=== PATIENT | male | born 1945 | race African-American/Black ===

== ENCOUNTER 2024-02-15 14:55 | Outpatient (REF) | payer MEDICARE, SELFPAY ==
[2024-02-15 17:28] LABS: Alanine Aminotransferase 89 U/L (0-40); Albumin Level 3.9 g/dL (3.5-5.0); Alkaline Phosphatase 79 U/L (39-117); Anion Gap 9 (12-20); Aspartate Amino Transferase 58 U/L (5-37); Bilirubin Total 0.2 mg/dL (0.0-1.0); Blood Urea Nitrogen 27 mg/dL (9-16); Calcium 8.7 mg/dL (8.4-10.2); Carbon Dioxide 21 mmol/L (22-29); Chloride 115 mmol/L (96-108); Cholesterol 138 mg/dL (<200); Estimated Glomerular Filt Rate 54; Glucose Random 83 mg/dL (60-115); HDL Cholesterol 39 mg/dL (>40); LDL Cholesterol Calculated 78 mg/dL (<100); Potassium 3.7 mmol/L (3.3-5.1); Sodium 141 mmol/L (135-145); Total Protein 7.6 g/dL (6.5-8.0); Triglycerides 108 mg/dL (<150)
[2024-02-15 17:36] LABS: Microalbum/Creatinine Ratio Ur 4.5 ug/mg cr (<30)
== END 2024-02-15 14:56 | disposition home or self-care (01) ==
LOC: HO.HHCL 14:55
PROVIDERS: Visit Provider Registered Nurse
DX: E11.22 Type 2 diabetes mellitus with diabetic chronic kidney disease (principal); N18.31 Chronic kidney disease, stage 3a
CPT/HCPCS: 36415; 80053; 80061; 82043; 82570

== ENCOUNTER 2025-02-18 10:13 | Outpatient (REF) | payer MEDICARE, SELFPAY ==
[2025-02-18 11:31] LABS: MANUAL DIFF FLAG NO
[2025-02-18 11:47] LABS: Basophils Absolute Auto 0.1 X10*3/uL (0.0-0.2); Basophils Percent Auto 0.9 % (0-2); Eosinophils Absolute Auto 0.5 X10*3/uL (0.0-0.4); Eosinophils Percent Auto 7.5 % (0-4); Hematocrit 43.8 % (42.0-52.0); Hemoglobin 14.5 g/dl (14.0-18.0); Imm Gran Abs Auto 0.03 X10*3/uL (0.00-0.03); Imm Gran Pct Auto 0.4 % (0.0-0.4); Lymphocytes Absolute Auto 1.3 X10*3/uL (1.2-4.9); Lymphocytes Percent Auto 18.6 % (20-40); Mean Corpuscular HGB Conc 33.1 g/dl (31.0-36.0); Mean Corpuscular Hemoglobin 33.9 pg (27.0-33.0); Mean Corpuscular Volume 102.3 fL (80.0-98.0); Mean Platelet Volume 11.4 fL (9.4-12.4); Monocytes Absolute Auto 0.8 X10*3/uL (0.1-1.2); Monocytes Percent Auto 11.8 % (2-11); Neutrophils Absolute Auto 4.1 x10*3/uL (2.0-8.3); Neutrophils Percent Auto 60.8 % (45-73); Platelet Count 167 X10*3/uL (160-400); Red Blood Count 4.28 X10*6/uL (4.60-5.80); Red Cell Distribution Width 13.9 % (11.0-16.0); White Blood Count 6.8 X10*3/uL (4.8-10.8)
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
--- OUTSIDE RECORDS SUMMARY | 2025-02-18 11:53 | XMS_ITS | Encounter Summary ---
Author Organization [facility] Address [address] [place] [address] Phone Care Team Providers Care Patient Relations Specialist Name Role Phone [facility] Primary Care Provider [phone] Encounter Details Date Type Department Care Team (Late st Contact Info) Description 01/24/2022 Documentation Only [facility], [address] [place] [address] [facility] [address] [place], [place] [phone] Social History Tobacco Use Types Packs/Day Years Used Date Smoking Tobacco: Heavy Smoker Cigarettes Alcohol Use Standard Drinks/Week Comments Never 0 (1 standard drink = 0.6 oz pur e alcohol) Sex and Gender Information Value Date Recorded Sex Assigned at Not on file Legal Sex Male 12:12 PM EST Gender Identity Not on file Sexual Orientation Not on file documented as of this encounter Plan of Treatment Not on file documented as of this encounter Visit Diagnoses Not on filedocumented in this encounter Care Teams Patient Relations Specialist Relationship Specialty Start Date End Date [facility] [address] [place], [place] [phone] PCP - General 01/24/22 documented as of this encounter
--- OUTSIDE RECORDS SUMMARY | 2025-02-18 11:53 | XMS_ITS | Encounter Summary ---
Author Organization [facility] Address [address] [place] [address] Phone Care Team Providers Care Welder Production Line Combination Name Role Phone [facility] Primary Care Provider [phone] Encounter Details Date Type Department Care Team (Late st Contact Info) Description 12/08/2022 Documentation Only [facility] [place], [address] [place] [address] Jose An PA Social History Tobacco Use Types Packs/Day Years Used Date Smoking Tobacco: Every Day Cigarettes Alcohol Use Standard Drinks/Week Comments Never [...] on filedocumented in this encounter Care Teams [employer]der [employer] Combination Relationship Specialty Start Date End Date [facility] [address] [place] [address] PCP - General 01/24/22 documented as of this encounter
--- OUTSIDE RECORDS SUMMARY | 2025-02-18 11:53 | XMS_ITS | Encounter Summary ---
Author Organization [employer] Address [address] [facility] [address] [place] [address] Care Team Providers Care Power And Recovery Supervisor Name Role Phone [facility] Primary Care Provider [phone] Reason for Visit * Reason Comments Med Refill Encounter Details Date Type Department Care Team (Late st Contact Info) Description 05/30/2024 Refill [facility] [address] [place], [place] [phone] [facility] [address] [place], [place] [phone] Social History Tobacco Use Types Packs/Day Years Used Date Smoking Tobacco: Some Days Cigarettes Smokeless Tobacco: Never Alcohol Use Standard Drinks/Week Comments Not Currently 0 (1 standard drink = 0.6 oz pur e alcohol) Depression Answer Date Recorded Patient Health Questionnaire-9 Score 4 02/15/2024 Patient Health Questionnaire-9 Score 4 02/15/2024 Last PHQ-9: Questionnaire Data Not on file 0 02/15/2024 Housing Stability Answer Date Recorded What is [...] Answer Date Recorded Patient Health Questionnaire-2 Score 1 02/15/2024 Sex and Gender Information Value Date Recorded Sex Assigned at Male 08/28/2022 10:14 AM EDT Legal Sex Male 10:14 AM EDT Gender Identity Male 08/28/2022 10:14 AM EDT Sexual Orientation Straight 08/28/2022 10 :14 AM EDT documented as of this encounter Plan of Treatment Upcoming Encounters Date Type Department Care Team (Late st Contact Info) Description 04/22/2025 9:00 AM EDT Office Visit [facility] [address] [place] [address] Candy Love FNP [address] [place] [address] documented as of this encounter Visit Diagnoses Not on filedocumented in this encounter Additional Health Concerns Assessment Noted Time PHQ-9 Depression Total Score: 4 02/15/20 24 2:48 PM EDT documented as of this encounter Care Teams Power And Recovery Supervisor Relationship Specialty Start Date End Date Candy Love FNP [address] [place] [address] PCP - General Family Medicine 07/26/21 documented as of this encounter
--- OUTSIDE RECORDS SUMMARY | 2025-02-18 11:53 | XMS_ITS | Clinical Summary ---
Author Organization [employer] Address [address] [facility] [address] [place] [address] Care Team Providers Care Reconciler Name Role Phone [facility] Primary Care Provider [phone] Allergies No known active allergies Medications fluticasone (Flonase) 50 MCG/ACT nasal spray Administer 1 spray into affected nostril(s) every 12 (twelve) hours. 2 Active glucose-vitamin C 4-6 GM-MG oral gel take 2 tablets check blood sugar 15 min later, below 70, take 2 more tablets, if still under 70 call provider for more instructions 0 Active nicotine (Nicotrol) 10 MG inhaler inhale (1UNITS) by inhalation route up to 6 times per day as needed for tobacco cessation 2 Active omeprazole (PriLOSEC) [address] capsule Take 1 capsule by mouth before evening meal. 2 Active brimonidine (AlphaGAN P) 0.2 % ophthalmic solution 1 drop in the morning and at bedtime. Prescribed elsewhere Active dorzolamide (Trusopt) 2 % ophthalmic solution Administer 1 drop into both eyes in the morning and at bedtime. Prescribed elsewhere Active latanoprost (Xalatan) 0.005 % ophthalmic solution Administer 1 drop into both eyes in the morning and at bedtime. Prescribed elsewhere Active ketorolac (Acular) 0.5 % ophthalmic solution 1 drop in the morning, at noon, in the evening, and at bedtime. Prescribed elsewhere Active prednisoLONE acetate (Pred-Forte) 1 % ophthalmic suspension 1 drop in the morning, at noon, and at bedtime. Prescribed elsewhere Active Netarsudil Dimesylate (Rhopressa) 0.02 % solution Administer into affected eye(s). Prescribed elsewhere Active Diclofenac Sodium 1 % gelIndications:C hronic right shoulder pain Apply topically to affected area up to three times daily 150 g 2 2 Active Capsaicin 0.025 % lotionIndication s:Chronic right shoulder pain Apply to affected area up to three times daily 1 Bottle 1 2 Active clonazePAM (KlonoPIN) 0.5 MG tabletIndication s:Anxiety disorder, unspecified TAKE 1 TABLET BY MOUTH EVERY TWELVE HOURS 60 tablet 3 Active Blood Pressure kitIndications:E ssential hypertension Use as directed 1 kit 4 Active Alcohol Swabs (Alcohol Prep) 70 % pads USE DIRECTED THREE TIMES DAILY 100 each 11 4 Active Multiple Vitamins-Iron (Tab-A-Matthew/Iron /Beta Carotene) tablet TAKE 1 TABLET BY MOUTH EVERY MORNING 30 tablet 5 4 Active FREESTYLE LITE test stripIndications :Type 2 diabetes mellitus with stage 3a chronic kidney disease, without long-term current use of insulin ([facility]) TEST BLOOD SUGAR THREE TIMES DAILY 100 strip 11 4 Active TRUEplus Lancets 33G miscIndications: Type 2 diabetes mellitus with stage 3a chronic kidney disease, without long-term current use of insulin ([facility]) TEST BLOOD SUGAR THREE TIMES DAILY 100 each 11 4 Active verapamil SR (Calan SR) 120 MG ER tabletIndication s:Primary hypertension Take 1 tablet by mouth every morning with food 30 tablet 5 4 Active atorvastatin (Lipitor) 40 MG tablet TAKE 1 TABLET BY MOUTH AT BEDTIME 90 tablet 1 4 Active D3 Super Strength 50 MCG (1999 UT) capsuleIndicatio ns:Vitamin D deficiency TAKE 1 CAPSULE BY MOUTH EVERY MORNING 90 capsule 1 4 Active Multiple Vitamins-Mineral s (CertaVite/Antio xidants) tablet TAKE 1 TABLET BY MOUTH EVERY MORNING 30 tablet 5 4 Active QUEtiapine (SEROquel) 50 MG tablet TAKE 1 TABLET BY MOUTH AT BEDTIME 30 tablet 3 4 Active FLUoxetine (PROzac) 20 MG capsule TAKE 1 CAPSULE BY MOUTH EVERY MORNING 30 capsule 5 5 Active QUEtiapine (SEROquel) 50 MG tabletIndication s:Schizophrenia, unspecified type (CMS/HCC) Take 1 tablet (50 mg) by mouth at bedtime. In addition to 50mg tablet in medbox 30 tablet 5 025 Active Active Problems Problem Noted Date Diagnosed Date Frailty 02/18/2024 Chronic right shoulder pain 10/27/2022 Assessment & Plan (10/27/2022 8:23 AM EST): PE consistent with mild impingement ?? Rx topical diclofenac and topical capsaicin ?? Tylenol per label instructions as needed for pain ?? Encouraged gentle stretching ?? If sx worsen will consider x-ray and cortisone injection Drug-induced hyperkalemia 06/30/2022 Type 2 diabetes mellitus 03/30/2022 Overview (02/20/2023): Diet controlled BMP: 12/2021 WNL Microalbumin: 12/2021 WNL Foot Exam: 01/2023 Risk category 0 Eye Exam: [facility] care Lipid panel: 12/2022 WNL Statin: Yes ASA: No AMAYA/ARB: No Encouraged regular aerobic exercise for improved glycemic control Encouraged daily foot checks Encouraged lean protein snacks and to avoid foods high in sugar and simple carbohydrates Treatment Goals: A1c goal: <7% FBG goal: <130 2 hour post prandial goal: <180 Assessment & Plan (02/20/2023 3:27 PM EDT): Lab Results Component Value Date HGBA1C 5.8 (H) 01/11/2023 ?? Continue current regimen ?? DM foot exam completed today-risk factor 0 Assessment & Plan (10/27/2022 8:16 AM EST): Current A1c: Ordered today ?? Pending updated A1c will consider jardiance start if A1c>8 Maintenance: BMP: Ordered today Microalbumin: Ordered today Foot Exam: Complete at follow up Eye Exam: Completed 08/2022 Lipid panel: Ordered today ASCVD: Calculate pending updated labs Statin: Yes ASA: No (age) AMAYA/ARB: No (hx of ARB induced hyperkalemia) Encouraged regular aerobic exercise for improved glycemic control Encouraged daily foot checks Encouraged lean protein snacks and to avoid foods high in sugar and simple carbohydrates Treatment Goals: A1c goal: <8% FBG goal: <130 2 hour post prandial goal: <180 Stage 3b chronic kidney disease 12/08/2021 Overview (10/26/2022): - Has initial appointment with nephrology (Dr. [facility] [place]) - Stage III - Stable Memory impairment 11/27/2021 Assessment & Plan (10/26/2022 3:55 PM EST): - Sx began 2017. - Previously referred to [facility] memory clinic, 2019, missed initial appointment - Unable to be left alone d/t safety concerns and wandering Vitamin D deficiency 07/08/2015 Depressive disorder 04/23/2012 Essential hypertension 04/23/2012 Overview (02/20/2023): - Consistently within goal - Hx of hyperkalemia (now resolved) with olmesartan (d/c) - Tolerating verapamil (d/t hx of proteinuria) well 120mg ER daily Maintenance: BMP: 12/2022 WNL Lipid Panel: 12/2022 WNL - Aerobic exercise to reduce BP. Initial goal of 30 min walk 3-5x/week. Increase as tolerated. - low-sodium diet (goal: <2g/day) and heart healthy diet such as DASH to reduce BP and prevent ASCVD. - Home BP monitoring 1-2 x day with goal of <140/90. - Seek immediate medical attention for chest pain, palpitations, SOB, syncope, or sudden changes in mental status. - Do not change or discontinue current prescriptions without first consulting health care provider Assessment & Plan (02/20/2023 3:27 PM EDT): ?? Continue current regimen Assessment & Plan (10/27/2022 8:17 AM EST): ?? Well controlled with verapamil 120mg ER ?? Continue current regimen Maintenance: BMP: Ordered today Lipid Panel: Ordered today ASCVD Risk: Calculate pending updated labs EKG: Obtain baseline at f/u - Aerobic exercise to reduce BP. Initial goal of 30 min walk 3-5x/week. Increase as tolerated. - low-sodium diet (goal: <2g/day) and heart healthy diet such as DASH to reduce BP and prevent ASCVD. - Home BP monitoring 1-2 x day with goal of <140/90. - Seek immediate medical attention for chest pain, palpitations, SOB, syncope, or sudden changes in mental status. - Do not change or discontinue current prescriptions without first consulting health care provider Schizophrenia 04/23/2012 Overview (10/26/2022): - Frequently sees his . No other auditory or visual hallucinations. Tobacco dependence syndrome 04/23/2012 Overview (10/26/2022): - Pt has successfully stopped smoking with use of nicotrol inhalers! Hypercholesterolemia 10/29/2004 Resolved Problems Problem Noted Date Diagnosed Date Resolved Date Impaired fasting blood sugar 11/27/2021 10/26/2022 Encounters Date Type Department Care Team Description 02/18/2025 9:00 AM EDT Office Visit [facility] [address] [place] [address] [phone] [facility] Type 2 diabetes mellitus with stage 3a chronic kidney disease, without long-term current use of insulin ([facility]) (Primary Dx); Schizophrenia, unspecified type ([facility]); Goiter; Cognitive decline; Decreased hearing of both ears 02/18/2025 Travel from Last 3 Months Immunizations Name Administration Dates Next Due Influenza High-dose Quadriva lent Preservative Free 07/17/2022,02/03/2022,08/10/2020 Influenza injectable quadriv alent IIV4 with preservative 09/19/2017,10/18/2015 Influenza injectable quadriv alent preservative free 08/21/2019,11/30/2016 Influenza, High Dose Seasona l, Preservative Free 07/24/2018 Influenza, IIV3, injectable 07/09/2014 Influenza, Split (incl. dio fied surface antigen) 09/30/2013,09/16/2012 Moderna Covid-19 Vaccine 12+ 02/03/2022,03/03/20 21,02/03/2021 Pneumococcal Conjugate PCV 13 10/18/2015 Pneumococcal Polysaccharide PPSV23 09/16/2012 TD (adult), 2 Lf tetanus tox oid, preservative free, adsorbed 11/01/2018,03/19/2009,04/13/1998 Tdap 09/30/2013 Zoster, Recombinant 10/11/2020,08/10/2020 Zoster, live 10/18/2015 Social History Tobacco Use Types Packs/Day Years [...] Orientation Straight 08/28/2022 10 :14 AM EDT Last Filed Vital Signs Vital Sign Reading [...] Mass Index 22.6 02/18/2025 9:06 AM EDT Plan of Treatment Upcoming Encounters Date Type Department Care Team (Late st Contact Info) Description 04/22/2025 9:00 AM EDT Office Visit [facility] [address] [place], [place] [phone] [facility], [facility] [address] [place], [place] [phone] Health Maintenance Due Date Last Done Comments Alcohol/Substance Use Screening 1957 RSV Patients and Patients Aged 60 years or older (1 - 1-dose 75+ series) 2021 Creatinine Level 08/16/2024 02/15/2024, , 12/01/2021, Additional history exists Diabetes: Foot Exam 02/14/2025 02/15/2024, 02/15/2024, 02/02/2023, Additional history exists Lipid Panel 02/14/2025 02/15/2024, 0303/2023, 03/30/2022, Additional history exists SDOH Screening 02/14/2025 02/15/2024 Diabetes: Hemoglobin A1C 08/20/2025 025, 02/15/2024, 01/11/2023, Additional history exists Depression Screening 02/18/2026 02/18/2025, 02/19/20 Tobacco Screening 02/18/2026 02/18/2025 Eye Exam 01/27/2027 01/27/2025, 08/29/2022 DTaP/Tdap/Td Vaccines (4 - Td or Tdap) 02/24/2030 02/25/2020, 11/01/2018, 09/30/2013, Additional history exists Pneumococcal Vaccine: 50+ Years Completed 10/18/2015, 09/16/2012 Zoster Vaccines Completed 10/11/2020, 07/29, 10/18/2015 Hepatitis C Screening Discontinued 05/24/2022 COVID-19 Vaccine Completed 07/09/2024, 08/2024, 02/03/2022, Additional history exists Influenza Vaccine Completed 07/09/2024, , 02/03/2022, Additional history exists HIB Vaccines Aged Out No longer eligi ble based on patient's age to complete this topic HPV Vaccines Aged Out No longer eligi ble based on patient's age to complete this topic Hepatitis A Vaccines Discontinued Hepatitis B Vaccines Discontinued IPV Vaccines Aged Out No longer eligi ble based on patient's age to complete this topic Meningococcal Vaccine Aged Out No jason stone eligible based on patient's age to complete this topic RSV under 20 months Aged Out No longe r eligible based on patient's age to complete this topic Rotavirus Vaccines Aged Out No longer eligible based on patient's age to complete this topic Procedures Procedure Name Priority Date/Time Associated Diagnosis Comments CBC WITH AUTO DIFFERENTIAL Routine 02/18/2025 10:16 AM EDT Type 2 diabetes mellitus with stage 3a chronic kidney disease, without long-term current use of insulin (CMS/HCC) POCT GLUCOSE Routine 02/18/2025 9:16 AM EDT Type 2 diabetes mellitus with stage 3a chronic kidney disease, without long-term current use of insulin (CMS/HCC) POCT GLYCATED HEMOGLOBIN, TOTAL Routine 02/18/2025 9:16 AM EDT Type 2 diabetes mellitus with stage 3a chronic kidney disease, without long-term current use of insulin (CMS/HCC) LIPID PANEL, STANDARD Routine 02/15/2024 2:56 PM EDT Type 2 diabetes mellitus with stage 3a chronic kidney disease, without long-term current use of insulin (CMS/HCC) COMPREHENSIVE METABOLIC PANEL Routine 02/15/2024 2:56 PM EDT Type 2 diabetes mellitus with stage 3a chronic kidney disease, without long-term current use of insulin (CMS/HCC) ZZZ HISTORICAL HEPATITIS C AB W/REFL TO HCV RNA, QN, PCR Routine 05/24/2022 3:07 PM EDT from Last 3 Months or Most Recently Relevant to Health Maintenance Results * (ABNORMAL) CBC auto differential (02/18/2025 10:16 AM EDT) White Blood Count 6.8 4.8 - 10.8 X10*3/uL [facility] Red Blood Count 4.28(L) 4.60 - 5.80 X10*6/uL [facility] Hemoglobin 14.5 14.0 - 18.0 g/dl [facility] Hematocrit 43.8 42.0 - 52.0 % [facility] Mean Corpuscular Volume 102.3(H) 80.0 - 98.0 fL [facility] Mean Corpuscular Hemoglobin 33.9(H) 27.0 - 33.0 pg [facility] Mean Corpuscular HGB Conc 33.1 31.0 - 36.0 g/dl [facility] Red Cell Distribution Width 13.9 11.0 - 16.0 % [facility] Platelet Count 167 160 - 400 X10*3/uL [facility] Mean Platelet Volume 11.4 9.4 - 12.4 fL [facility] Neutrophils Percent Auto 60.8 45 - 73 % [facility] Imm Gran Pct Auto 0.4 0.0 - 0.4 % [facility] Lymphocytes Percent Auto 18.6(L) 20 - 40 % [facility] Monocytes Percent Auto 11.8(H) 2 - 11 % [facility] Eosinophils Percent Auto 7.5(H) 0 - 4 % [facility] Basophils Percent Auto 0.9 0 - 2 % [facility] NRBC Pct Auto 0.0 0.0 - 0.2 /100WBC [facility] Neutrophils Absolute Auto 4.1 2.0 - 8.3 x10*3/uL [facility] Imm Gran Abs Auto 0.03 0.00 - 0.03 X10*3/uL [facility] Lymphocytes Absolute Auto 1.3 1.2 - 4.9 X10*3/uL [facility] Monocytes Absolute Auto 0.8 0.1 - 1.2 X10*3/uL [facility] Eosinophils Absolute Auto 0.5(H) 0.0 - 0.4 X10*3/uL [facility] Basophils Absolute Auto 0.1 0.0 - 0.2 X10*3/uL [facility] NRBC Abs Auto 0.000 0.0 - 0.012 X10*3/uL [facility] Blood Venous blood specimen / Unknown 02/18/2025 10:16 AM EDT 02/18/2025 11:27 AM EDT [facility] LAB BLOOD ORDERABLES Final Re sult Performing Organization Address City/State/[facility] Co de Phone Number [facility] [address] [place] [phone] * POCT HGB A1C (02/18/2025 9:16 AM EDT) Hemoglobin A1C 5.5 4.0 - 6.0 % QC Media Lot # [id number] Lot# Expiration Date [id number] Blood 02/18/2025 9:16 AM EDT [facility] POINT OF CARE TEST ENTER/EDIT ORDERABLES Final Result * POCT Glucose (02/18/2025 9:16 AM EDT) Glucose Blood, POC 105 60 - 200 mg/dL Blood Capillary blood specimen / Unknown 02/18/2025 9:16 AM EDT [facility] POINT OF CARE TEST ENTER/EDIT ORDERABLES Final Result * (ABNORMAL) Lipid Panel, Standard (02/15/2024 2:56 PM EDT) Triglycerides 108 <150 mg/dL [facility] Comment:Desirable Triglyceri de: less than 150 mg/dLBorderline High Triglyceride 150-199 mg/dLHigh Triglyceride: 200-499 mg/dLVery High Triglyceride: greater than or equal to 5OO mg/dL Cholesterol 138 <200 mg/dL [facility] Comment:Desirable Cholestero l: less than 200 mg/dLBorderline High Cholesterol: 200-239 mg/dLHigh Cholesterol: greater than 239 mg/dL LDL Cholesterol Calculated 78 <100 mg/dL [facility] Comment:Desirable LDL: less than 100 mg/dLNear Optimal/Above Optimal LDL: 110- 129 mg/dLBorderline High LDL: 130-159 mg/dLHigh LDL: 160-189 mg/dLVery High LDL: greater than or equal to 190 mg/dL HDL Cholesterol 39(L) >40 mg/dL [facility] Comment:Desirable HDL: great er than 40 mg/dL Note: This HDL assay may give artificially low results in patients with liver disease. Blood Venous blood specimen / Unknown 02/15/2024 2:56 PM EDT 02/15/2024 4:03 PM EDT [facility] LAB BLOOD ORDERABLES Final Re sult [facility] [address] [place], [place] [phone] * (ABNORMAL) Comprehensive Metabolic Panel (02/15/2024 2:56 PM EDT) Sodium 141 135 - 145 mmol/L [facility] Potassium 3.7 3.3 - 5.1 mmol/L [facility] Chloride 115(H) 96 - 108 mmol/L [facility] Carbon Dioxide 21(L) 22 - 29 mmol/L [facility] Anion Gap 9(L) 12 - 20 [facility] Urea Nitrogen (BUN) 27(H) 9 - 16 mg/dL [facility] Creatinine, Serum 1.30 0.5 - 1.4 mg/dL [facility] Estimated Glomerular Filt Rate 54 [facility] Comment:NOTE: For -Am erican individuals, multiply the result by 1.210.Chronic Kidney Disease: Estimated GFR < 60 mL/min/1.73k8Fburqh Kidney Disease: Estimated GFR < 15 mL/min/1.73m2 Glucose 83 60 - 115 mg/dL [facility] Calcium 8.7 8.4 - 10.2 mg/dL [facility] Bilirubin, Total 0.2 0.0 - 1.0 mg/dL [facility] Aspartate Amino Transferase 58(H) 5 - 37 U/L [facility] Alanine Aminotransferase 89(H) 0 - 40 U/L [facility] Total Protein 7.6 6.5 - 8.0 g/dL [facility] Albumin Level 3.9 3.5 - 5.0 g/dL [facility] Alkaline Phosphatase 79 39 - 117 U/L [facility] Blood Venous blood specimen / Unknown 02/15/2024 2:56 PM EDT 02/15/2024 4:03 PM EDT [facility] LAB BLOOD ORDERABLES Final Re sult [facility] [address] [place] [phone] * HEPATITIS C AB W/REFL TO HCV RNA, QN, PCR (05/24/2022 3:07 PM EDT) HEPATITIS C ANTIBODY NON-REACT [facility] NON-REACT [facility] INDEX 0.18 <1.00 [facility] Comment: ?? HCV antibody was non-reactive. There is no laboratory ?? evidence of HCV infection. ?? In most cases, no further action is required. However, if recent HCV exposure is suspected, a test for HCV RNA (test code 43563) is suggested. ?? For additional information please refer to http://education.AboutOurWork/faq/NKG30f1 (This link is being provided for informational/ educational purposes only.) ?? 05/24/2022 3:07 PM EDT [facility] HISTORICAL/NON ORDERABLE LABS Final Result [facility] [address] from Last 3 Months or Most Recently Relevant to Health Maintenance Insurance * Guarantor: Ty Reveles Account Type Relation to Patient Date of Phone Billing Address Personal/Family Self [address] [place] [address] [facility] [employer] (O D-SNP) [place] [id number] * Guarantor: Ty Reveles Account Type Relation to Patient Date of Phone Billing Address Personal/Family Self [address] [place] [address] * Guarantor: Ty Reveles Account Type Relation to Patient Date of Phone Billing Address Personal/Family Self [address] [place] [address] * Guarantor: Ty Reveles Account Type Relation to Patient Date of Phone Billing Address Personal/Family Self [address] [place] [address] Care Teams Reconciler Relationship Specialty Start Date End Date [facility] [address] [place] [address] PCP - General Family Medicine 07/26/21
--- OUTSIDE RECORDS SUMMARY | 2025-02-18 11:53 | XMS_ITS | Clinical Summary ---
Author Organization [facility], Address [address] [place] [address] [place] [address] Phone Care Team Providers Care Ski Binding Fitter And Repairer Name Role Phone [facility] Primary Care Provider [phone] Allergies No known active allergies Medications traMADol (ULTRAM) 50 MG tablet Take 50 mg by mouth every 8 (eight) hours if needed for moderate pain Take 1/2 tab every 8 hours Active atorvastatin (LIPITOR) 40 MG tablet Take 40 mg by mouth 1 (one) time each day Active propranolol (INDERAL) 60 MG tablet Take 60 mg by mouth at bed time Take 1 capsule every day at bedtime Active hydroCHLOROthia zide (HYDRODIURIL) 12.5 MG tablet Take 12.5 mg by mouth 1 (one) time each day Active FLUoxetine (PROzac) 20 MG capsule Take 20 mg by mouth 1 (one) time each day Active cloNIDine (CATAPRES) 0.1 MG tablet Take 0.1 mg by mouth 2 (two) times a day Active ergocalciferol (VITAMIN D-2) 1.25 MG (74923 UT) capsule Take 50,000 Units by mouth 1 (one) time per week Active divalproex (DEPAKOTE) 250 MG EC tablet Take 250 mg by mouth 2 (two) times a day Do not crush, chew, or split. Active QUEtiapine (SEROquel) 50 MG tablet Take 50 mg by mouth every night Active metFORMIN (GLUCOPHAGE) 500 MG tablet Take 500 mg by mouth 2 (two) times a day with meals Active glucose 4 g chewable tablet Chew 16 g if needed for low blood sugar Active clonazePAM (KlonoPIN) 0.5 MG tablet Take 0.5 mg by mouth 2 (two) times a day Active Active Problems Problem Noted Date Diagnosed Date Vitamin D deficiency 03/30/2022 Urinary incontinence 03/30/2022 Type 2 diabetes mellitus 03/30/2022 Impaired fasting glucose 03/30/2022 Hypercholesterolemia 03/30/2022 Edema of lower extremity 03/30/2022 Stage 3a chronic kidney disease 10/20/2020 Essential hypertension 10/20/2020 Social History Tobacco Use Types Packs/Day Years Used Date Smoking Tobacco: Every Day Cigarettes Tobacco Cessation:Ready to Q uit: Not Asked; Counseling Given: Not Answered Alcohol Use Standard Drinks/Week Comments Never 0 (1 standard drink = 0.6 oz pur e alcohol) Sex and Gender Information Value Date Recorded Sex Assigned at Not on file Legal Sex Male 12:12 PM EST Gender Identity Not on file Sexual Orientation Not on file Last Filed Vital Signs Vital Sign Reading Time Taken Comments Blood Pressure 120/58 06/02/2022 2:37 PM EDT Pulse - - Temperature - - Respiratory Rate - - Oxygen Saturation - - Inhaled Oxygen Concentration - - Weight 61.3 kg (135 lb 3.2 oz) 06/02/2022 2:37 P M EDT Height 165.1 cm (5' 5 ) 06/02/2022 2:37 PM EDT Body Mass Index 22.5 06/02/2022 2:37 PM EDT Plan of Treatment Health Maintenance Due Date Last Done Comments Pneumococcal Vaccine: 50+ Ye ars (1 of 2 - PCV) 1964 Diabetes: Hemoglobin A1C 03/30/2022 Diabetes: Ophthalmology Exam 03/30/2022 Diabetes: Pedal Pulse Checked 03/30/2022 Diabetes: Sensory Foot Exam 03/30/2022 Diabetes: Visual Foot Exam 03/30/2022 Influenza Vaccine (Season Ended) 2025 Hepatitis B Vaccine Aged Out No longe r eligible based on patient's age to complete this topic Insurance , [address] [place] [id number] [place] [address] [place] [id number] Care Teams Ski Binding Fitter And Repairer Relationship Specialty Start Date End Date [facility] [address] [place] [phone] PCP - General 01/24/22
--- OUTSIDE RECORDS SUMMARY | 2025-02-18 11:53 | XMS_ITS | Encounter Summary ---
Author Organization [facility] Address [address] [place] [address] Phone Care Team Providers Care Coke Production Heater Name Role Phone [facility] Primary Care Provider [phone] Encounter Details Date Type Department Care Team (Late st Contact Info) Description 06/02/2022 Documentation Only [facility] [place], [address] [place] [address] Jose An PA Social History [...] on filedocumented in this encounter Care Teams Coke Production Heater Relationship Specialty Start Date End Date [facility] [address] [place] [address] PCP - General 01/24/22 documented as of this encounter
--- OUTSIDE RECORDS SUMMARY | 2025-02-18 11:53 | XMS_ITS | Encounter Summary ---
Author Organization [facility] Address [address] [place] [address] Phone Care Team Providers Care Grapple Crew Leader Name Role Phone Ivan Maribel Primary Care Provider Encounter Details Date Type Department Care Team (Late st Contact Info) Description 03/30/2022 Documentation Only [facility] [place], [address] [place] [address] Leidy Rogers [address] [place] [address] Social History Tobacco Use Types Packs/Day Years [...] on filedocumented in this encounter Care Teams Grapple Crew Leader Relationship Specialty Start Date End Date Ivan Maribel [address] [place] [address] PCP - General 01/24/22 documented as of this encounter
--- OUTSIDE RECORDS SUMMARY | 2025-02-18 11:53 | XMS_ITS | Encounter Summary ---
Author Organization [email or web address] Address [address] [facility] 7t [place] [address] Care Team Providers Care Third Officer Name Role Phone [facility] Primary Care Provider [phone] Encounter Details Date Type Department Care Team (Late Contact Info) Description 10/26/2022 Abstract [facility] MEDICINE [address] [place] [address] [phone] [facility] [address] [place], [place] [phone] Social History Tobacco Use Types Packs/Day Years Used Date Smoking Tobacco: Some Days Cigarettes Depression Answer Date Recorded Patient Health Questionnaire-9 Score 0 10/17/2022 Depression Answer Date Recorded Patient Health Questionnaire-2 Score 0 10/17/2022 Sex and Gender Information Value Date Recorded Sex Assigned at Male 08/28/2022 10:14 AM EDT Legal Sex Male 10:14 AM EDT Gender Identity Male 08/28/2022 10:14 AM EDT Sexual Orientation Straight 08/28/2022 10 :14 AM EDT COVID-19 Exposure Response Date Recorded In the last 10 days, have yo u been in contact with someone who was confirmed or suspected to have Coronavirus/COVID-19? No / Unsure 10/17/2022 11:19 AM EST documented as of this encounter Plan of Treatment Upcoming Encounters Date Type Department Care Team (Late Contact Info) Description 04/22/2025 9:00 AM EDT Office Visit [facility] MEDICINE [address] [place] [phone] [phone] documented as of this encounter Visit Diagnoses Not on filedocumented in this encounter Additional Health Concerns Assessment Noted Time PHQ-9 Depression Total Score: 0 10/17/20 22 11:49 AM EST documented as of this encounter Care Teams Third Officer Relationship Specialty Start Date End Date Candy Love FNP [address] [place] [address] PCP - General Family Medicine 07/26/21 documented as of this encounter
--- OUTSIDE RECORDS SUMMARY | 2025-02-18 11:53 | XMS_ITS | Encounter Summary ---
Author Organization [employer] Address [address] [facility] 7t [place] [address] Care Team Providers Care Fireworks Display Specialist Name Role Phone [facility] Primary Care Provider [phone] Reason for Visit * Reason Comments Med Refill Encounter Details Date Type Department Care Team (Late Contact Info) Description 07/31/2023 Refill [facility] MED[facility]INE [address] [place] [phone] [facility] [address] [place], [place] [phone] Social History Tobacco Use Types Packs/Day Years [...] Description 04/22/2025 9:00 AM EDT Office Visit [facility]INE [address] [place] [address] [phone] documented as of this encounter Visit Diagnoses Not on filedocumented in this encounter Additional Health Concerns Assessment Noted Time PHQ-9 Depression Total Score: 0 10/17/20 22 11:49 AM EST documented as of this encounter Care Teams Fireworks Display Specialist Relationship Specialty Start Date End Date Candy Love FNP [address] [place] [address] PCP - General Family Medicine 07/26/21 documented as of this encounter
--- OUTSIDE RECORDS SUMMARY | 2025-02-18 11:53 | XMS_ITS | Encounter Summary ---
Author Organization [employer] Address [address] [facility] 7t [place] [address] Care Team Providers Care Textile Designer Name Role Phone [facility] Primary Care Provider [phone] Encounter Details Date Type Department Care Team (Late st Contact Info) Description [email or web address] [address] [place], [place] [phone] [facility] [address] [place] [address] Social History Tobacco Use Types Packs/Day Years [...] Description 04/22/2025 9:00 AM EDT Office Visit [facility] [address] [place], [place] [phone] [facility] [address] [place] [address] documented as of this encounter Visit Diagnoses Not on filedocumented in this encounter Additional Health Concerns Assessment Noted Time PHQ-9 Depression Total Score: 0 10/17/20 22 11:49 AM EST documented as of this encounter Care Teams Textile Designer Relationship Specialty Start Date End Date Candy Love FNP [address] [place] [phone] PCP - General Family Medicine 07/26/21 documented as of this encounter
--- OUTSIDE RECORDS SUMMARY | 2025-02-18 11:53 | XMS_ITS | Encounter Summary ---
Author Organization [employer] Address [address] [facility] 7t [place] [address] Care Team Providers Care Rail Setter Name Role Phone [facility] Primary Care Provider [phone] Encounter Details Date Type Department Care Team (Latest Contact Info) Description 02/18/2025 Travel Social History Tobacco Use Types Packs/Day Years [...] Description 04/22/2025 9:00 AM EDT Office Visit [facility] [address] [place] [address] Candy Love FNP [address] [place] [address] documented as of this encounter Visit Diagnoses Not on filedocumented in this encounter Additional Health Concerns Assessment Noted Time PHQ-9 Depression Total Score: 0 02/19/20 25 9:16 AM EDT documented as of this encounter Care Teams Rail Setter Relationship Specialty Start Date End Date Candy Love FNP [address] [place] [address] PCP - General Family Medicine 07/26/21 documented as of this encounter
[2025-02-18 12:14] LABS: Alanine Aminotransferase 28 U/L (0-40); Alkaline Phosphatase 64 U/L (39-117); Anion Gap 7 (12-20); Aspartate Amino Transferase 33 U/L (5-37); Bilirubin Total 0.3 mg/dL (0.0-1.0); Blood Urea Nitrogen 29 mg/dL (9-16); Carbon Dioxide 22 mmol/L (22-29); Chloride 116 mmol/L (96-108); Cholesterol 119 mg/dL (<200); Estimated Glomerular Filt Rate 55; Glucose Random 86 mg/dL (60-115); HDL Cholesterol 47 mg/dL (>40); Iron 71 mcg/dL (45-160); LDL Cholesterol Calculated 59 mg/dL (<100); Percent Iron Saturation 32 % (15-50); Potassium 4.2 mmol/L (3.3-5.1); Sodium 141 mmol/L (135-145); Total Iron Binding Capacity 224 mcg/dL (228-428); Total Protein 6.9 g/dL (6.5-8.0); Triglycerides 69 mg/dL (<150); Unsaturated Iron Binding 153 ug/dL
[2025-02-18 12:28] LABS: Creatinine Urine 94.92 mg/dL; Microalbum/Creatinine Ratio Ur 6.3 ug/mg cr (<30)
[2025-02-18 12:33] LABS: Ferritin 73 ng/mL (20-250); TSH reflex Free T4 1.61 uIU/mL (0.32-4.0)
[2025-02-18 12:40] LABS: Folate 15.9 ng/mL (> or = 4.0); Vitamin B12 1275 pg/mL (200-900)
== END 2025-02-18 10:14 | disposition home or self-care (01) ==
LOC: HO.HHCL 10:13
PROVIDERS: Visit Provider Registered Nurse
DX: E11.22 Type 2 diabetes mellitus with diabetic chronic kidney disease (principal); N18.31 Chronic kidney disease, stage 3a; E04.9 Nontoxic goiter, unspecified
CPT/HCPCS: 36415; 80053; 80061; 82043; 82570; 82607; 82728; 82746; 83540; 84443; 85025

== ENCOUNTER → 2025-02-25 17:38 | Outpatient (BNV) | payer OTHER, SELFPAY | PROVIDERS: PCP Registered Nurse; Visit Provider Radiology Diagnostic Radiology | DX: R41.81 Age-related cognitive decline (principal) | CPT/HCPCS: 70551 ==

== ENCOUNTER 2025-02-25 17:39 | Outpatient (REF) | payer OTHER, SELFPAY ==
--- NOTE | ~2025-02-25 | MR_ITS ---
EXAMINATION: MR BRAIN WITHOUT IV CONTRAST HISTORY: 79-year-old male with decline in cognitive function TECHNIQUE: Sagittal T1, coronal FLAIR, and axial T1, FLAIR, T2, gradient echo, and diffusion weighted MR images of the brain were obtained. COMPARISON: Correlation is made with an unenhanced head CT dated 11/01/2018. FINDINGS: There is diffuse prominence of the ventricular system and cortical sulci, consistent with atrophy. Periventricular and subcortical white matter hyperintensities are noted on the FLAIR and T2-weighted images which are nonspecific, but often seen in the setting of small vessel ischemic disease. There is no mass effect or midline shift. No intra or extra-axial fluid collections are identified. There are no foci of restricted diffusion. Normal vascular flow voids are noted in the basilar and carotid arteries. There is a small polyp vs mucous retention cyst in the left maxillary sinus. The remaining visualized paranasal sinuses are clear. There are small foci of fluid signal intensity in the bilateral mastoid air cells. MR/MR head/brain wo con IMPRESSION: No acute intracranial abnormality. Electronically signed by: Mahamed Campos MD 02/26/2025 12:50 PM EDT
== END 2025-02-25 17:40 | disposition home or self-care (01) ==
LOC: HO.MRI 17:39
PROVIDERS: PCP Registered Nurse; Visit Provider Registered Nurse
DX: R41.89 Other symptoms and signs involving cognitive functions and awareness (principal)
CPT/HCPCS: 70551

== ENCOUNTER 2025-04-07 14:41 | Outpatient (REF) | payer OTHER, SELFPAY ==
--- NOTE | ~2025-04-07 | US_ITS ---
EXAMINATION: US THYROID HISTORY: 79-year-old male with concern for possible goiter TECHNIQUE: Real-time grayscale ultrasound imaging was performed and images were reviewed. COMPARISON: There are no prior studies available for comparison. FINDINGS: SIZE: The right thyroid lobe measures 4.2 x 0.9 x 0.9 cm. The left thyroid lobe measures 3.8 x 0.9 x 1.2 cm. The isthmus measures 3 mm. FLOW: Flow to the gland is normal. ECHOGENICITY: The echotexture of the gland is homogeneous. NODULES: Tiny subcentimeter cysts are noted in both thyroid lobes. No solid nodules are identified. US/US thyroid IMPRESSION: Unremarkable thyroid ultrasound. ACR TI-RADS Guidelines TR1 (0 points): Benign, No follow-up or biopsy required TR2 (2 points): Not Suspicious, No biopsy or follow up indicated TR3 (3 points): Mildly Suspicious, FNA if >= 2.5 cm, Follow if >= 1.5 cm TR4 (4-6 points): Moderately Suspicious, FNA if >= 1.5 cm, Follow if >= 1.0 cm TR5 (>=7 points): Highly Suspicious, FNA if >= 1.0 cm, Follow if >= 0.5 cm Electronically signed by: Mahamed Campos MD 04/07/2025 03:40 PM EDT
--- OUTSIDE RECORDS SUMMARY | 2025-04-07 17:39 | XMS_ITS | Encounter Summary ---
Author Organization [employer] Address [address] [place] [address] 7 [place] [address] Care Team Providers Care Garment Patternmaker Name Role Phone [facility] Primary Care Provider [phone] Encounter Details Date Type Department Care Team (Late st Contact Info) Description 04/04/2023 [facility] [employer] Information Management [address] [place], [place] [phone] [facility] [address] [place], [place] [phone] Social History Tobacco Use Types Packs/Day Years [...] Description 04/22/2025 9:00 AM EDT Office Visit [facility] [address] [place], [place] [phone] [facility] [address] [place] [address] documented as of this encounter Visit Diagnoses Not on filedocumented in this encounter Additional Health Concerns Assessment Noted Time PHQ-9 Depression Total Score: 0 10/17/20 22 11:49 AM EST documented as of this encounter Care Teams Garment Patternmaker Relationship Specialty Start Date End Date Candy Love FNP [address] [place] [address] PCP - General Family Medicine 07/26/21 documented as of this encounter
== END 2025-04-07 14:42 | disposition home or self-care (01) ==
LOC: HO.US 14:41
PROVIDERS: PCP Registered Nurse; Visit Provider Registered Nurse
DX: E04.9 Nontoxic goiter, unspecified (principal)
CPT/HCPCS: 76536

== ENCOUNTER → 2025-04-07 14:43 | Outpatient (BNV) | payer OTHER, SELFPAY | PROVIDERS: PCP Registered Nurse; Visit Provider Radiology Diagnostic Radiology | DX: E04.9 Nontoxic goiter, unspecified (principal) | CPT/HCPCS: 76536 ==

== ENCOUNTER 2025-04-20 12:57 | Outpatient (REF) | payer OTHER, SELFPAY ==
--- OUTSIDE RECORDS SUMMARY | 2025-04-20 14:19 | XMS_ITS | Encounter Summary ---
Author Organization [email or web address] Address [address] [place] [address] 7 [place] [address] Care Team Providers Care Tosser Name Role Phone [place] [facility] Primary Care Provider [phone] Encounter Details Date Type Department Care Team (Late st Contact Info) Description 04/04/[address] [facility] [employer] Information Management [address] [place], [place] [phone] [facility] [address] [place], [place] [phone] Social History Tobacco Use Types Packs/Day Years [...] Description 04/22/2025 9:00 AM EDT Office Visit [facility] [address] [place], [place] [phone] [facility] [address] [place] [address] documented as of this encounter Visit Diagnoses Not on filedocumented in this encounter Additional Health Concerns Assessment Noted Time PHQ-9 Depression Total Score: 0 10/17/20 22 11:49 AM EST documented as of this encounter Care Teams Tosser Relationship Specialty Start Date End Date Candy Love FNP [address] [place] [address] PCP - General Family Medicine 07/26/21 documented as of this encounter
== END 2025-04-20 12:58 | disposition home or self-care (01) ==
LOC: HO.SH 12:57
PROVIDERS: Visit Provider Registered Nurse
DX: Z01.118 Encounter for examination of ears and hearing with other abnormal findings (principal); H90.A21 Sensorineural hearing loss, unilateral, right ear, with restricted hearing on the contralateral side; H90.A32 Mixed conductive and sensorineural hearing loss, unilateral, left ear with restricted hearing on the contralateral side
CPT/HCPCS: 92557; 92567

== ENCOUNTER 2025-04-22 10:13 | Outpatient (REF) | payer OTHER, SELFPAY ==
--- NOTE | ~2025-04-22 | XR_ITS ---
EXAMINATION: XR CHEST CLINICAL INFORMATION: 80 y.o male with productive cough COMPARISON: 11/01/2018. TECHNIQUE: 2 views of the chest were obtained. FINDINGS: The cardiac, hilar, and mediastinal contours are normal. The lungs are diffusely hyperaerated, however clear bilaterally. There is no pneumothorax or pleural effusion. There is no focal osseous or soft tissue abnormality. There are spinal degenerative changes. XR/XR chest 2V IMPRESSION: No active pulmonary disease. Electronically signed by: Roby Lopez MD 04/22/2025 10:33 AM EDT RP
--- OUTSIDE RECORDS SUMMARY | 2025-04-22 11:48 | XMS_ITS | Encounter Summary ---
Author Organization [employer] Address [address] [facility] 7t [place] [address] Care Team Providers Care Perforating Machine Operator Name Role Phone [facility] Primary Care Provider [phone] Encounter Details Date Type Department Care Team ([facility] st Contact Info) Description 04/04/2023 [facility] Information Management [address] [place], [place] [phone] [facility] [address] [place], [place] [phone] Social History Tobacco Use Types Packs/Day Years [...] documented as of this encounter Care Teams Perforating Machine Operator Relationship Specialty Start Date End Date [facility] [address] [place], [place] [phone] PCP - General Family Medicine 07/26/21 documented as of this encounter
== END 2025-04-22 10:14 | disposition home or self-care (01) ==
LOC: HO.HHCX 10:13
PROVIDERS: PCP Registered Nurse; Visit Provider Registered Nurse
DX: R05.8 Other specified cough (principal)
CPT/HCPCS: 71046

== ENCOUNTER → 2025-04-22 10:23 | Outpatient (BNV) | payer OTHER, SELFPAY | PROVIDERS: PCP Registered Nurse; Visit Provider Radiology Diagnostic Radiology | DX: R05.9 Cough, unspecified (principal) | CPT/HCPCS: 71046 ==